=== PATIENT | female | born 1945 | race Caucasian/White ===

== ENCOUNTER → 2017-03-19 | Outpatient (CLI) | payer MEDICARE | LOC: CARD 11:50 | PROVIDERS: ATTEND Internal Medicine Cardiovascular Disease | DX: Q23.1 Congenital insufficiency of aortic valve (principal); I11.0 Hypertensive heart disease with heart failure; I51.7 Cardiomegaly; I34.0 Nonrheumatic mitral (valve) insufficiency ==